=== PATIENT | male | born 1980 ===

== ENCOUNTER 2022-03-14 13:35 | Emergency (ER) | payer OTHER, SELFPAY ==
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
[2022-03-14 14:42] VITALS: BP 107/87; PULSE 95; RESP 18; TEMP 36.8; O2SAT 100; BMI 29.9
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
[2022-03-14] MEDS: Cyclobenzaprine HCl 10 MG TABLET PO (18:21)
[2022-03-14] MEDS: Ketorolac Tromethamine 15 MG/ML VIAL IM (18:21)
[2022-03-14 18:44] VITALS: BP 108/85; PULSE 79; RESP 18; O2SAT 99
== END 2022-03-14 18:46 | disposition home or self-care (01) ==
PROVIDERS: Emergency Provider Emergency Medicine; PCP Physician Assistant Medical
DX: Z04.1 Encounter for examination and observation following transport accident (principal)
CPT/HCPCS: 70450; 72125; 96372; 99284; J1885

== ENCOUNTER 2024-01-10 12:52 | Emergency (ER) | payer MEDICARE, SELFPAY ==
[2024-01-10 13:27] VITALS: BP 120/85; PULSE 82; RESP 20; TEMP 37.1; O2SAT 100; BMI 29.3
--- NOTE | 2024-01-10 13:28 | ED_ITS ---
HPI - Eye Problem General Chief complaint: Eye Problems Stated complaint: L eye swelling Time Seen by Provider: 01/10/24 13:35 Source: patient Mode of arrival: ambulatory Limitations: no limitations History of Present Illness HPI Narrative: This is a rapid medical exam: Additional HPI, ROS, PE not included below will be deferred to primary provider. Left eyelid swelling since Monday. Thought it was a stye and was using ointment and warm compresses without resolution of symptoms. States he has what feels like an abscess on the eyelid. Denies any drainage from the eyelid. Denies vision changes. This is a 43-year-old male presenting to the emergency department for evaluation of ?stye? to left eyelid that started Monday and has been progressively worsening. Patient reports before it was a stye it appeared to be a white dot. He did not squeeze it or do anything. It rapidly worsened. He reports the area is tender to palpation. Denies fevers, chills, headache, visual changes, neck pain, nausea, vomiting, abdominal pain, foreign body sensation in eye. Related Data Previous Rx's Medication Instructions Recorded cyclobenzaprine 10 mg tablet 10 mg PO TID PRN muscle spasm 7 03/14/22 days #21 tabs cephalexin 500 mg tablet 500 mg PO Q6H 10 days #40 tabs 01/10/24 doxycycline hyclate 100 mg capsule 100 mg PO BID 10 days #20 caps 01/10/24 Allergies Allergy/AdvReac Type Severity Reaction Status Date / Time No Known Allergies Allergy Verified 01/10/24 13:30 [No Known Allergies*] Review of Systems Review of Systems: Yes all other systems are reviewed and are negative [facility] Past Medical History Attestation statement: The following information was validated with the patient. Source: old records reviewed and nursing notes reviewed Medical History Migraine Brain cyst Social History Social History Advance Directives: No Advance Directives Information Provided: No Physical Exam Vital Signs: Vital Signs: Last Vital Signs Temp 98.8 F 01/10/24 13:27 Pulse 82 01/10/24 13:27 Resp 20 01/10/24 13:27 BP 120/85 01/10/24 13:27 Pulse Ox 100 01/10/24 13:27 O2 Del Method Room Air 01/10/24 13:27 BMI result Body Mass Index 29.3 vss Appearance: Alert.? Oriented X3.? No acute distress.? Head: Normocephalic, atraumatic, no step-offs or deformities Eyes: Pupils equal, round and reactive to light.?+ abscess w/ fluctuence tp L upper eye lid overlying errythema and warmth. No pain w/ EOM CVS:? Pulses normal.? Respiratory: No respiratory distress. Skin: Skin warm and dry.? Normal skin color.? Normal skin turgor.? Extremities: No lower extremity edema.? No calf ttp. 5/5 strength to bilateral upper and lower extremities Back: No midline tenderness, no C-spine tenderness, full range of motion, no CVA tenderness bilaterally Neuro: Oriented X 3.? No motor deficit.? No sensory deficit. CN 2-12 intact Medical Decision Making Medical Decision Making MDM Narrative: 43-year-old male presents with left upper eyelid abscess that started Monday and has been progressively worsening. Physical exam Pupils equal, round and reactive to light.?+ abscess w/ fluctuence tp L upper eye lid overlying errythema and warmth. No pain w/ EOM History and physical exam concerning for abscess with overlying cellulitis. No signs of orbital cellulitis however. No signs of optic nerve entrapment. Unlikely systemic illness. I did discuss this case with my attending who agrees that this is an abscess and we should not incision and drainage or fine needle aspirate this area. Advised warm compresses and antibiotics. Educated patient on diagnosis and treatment plan, answered all question, patient verbalizes understanding. At this time patient will be discharged home, advised to return with new or worsening symptoms. Educated on worrisome signs and symptoms and when to return. At this time I feel comfortable discharge home. Differential Diagnosis Differential Diagnoses: The differential diagnosis associated with the presentation includes History and physical exam concerning for abscess with overlying cellulitis. No signs of orbital cellulitis however. No signs of optic nerve entrapment. Unlikely systemic illness. Admission/Observation Consideration of admission/observation: Escalation of care including admission/observation considered Consult Healthcare Provider Management of the patient was discussed with: Chief Operator Reformer Critical Care Time Critical Care Time Critical Care Time: No Discharge Plan Discharge Clinical Impression: Abscess of eyelid Patient Disposition: Home, Self-Care Instructions: Abscess (ED), Incision and Drainage (ED) Additional Instructions: Take your medications as prescribed. If you were prescribed antibiotics today, it is important that you take your medication to their entirety, do not skip any doses, do not finish them early. Follow-up with your primary care provider this week. Return to the emergency department with new or worsening symptoms. Such as fevers, chills, chest pain, shortness of breath, nausea, vomiting, dizziness, headache, vision changes, lethargy In case of emergency call 911 Warm compresses to the area Wound check in 2-3 days. Prescriptions: New doxycycline hyclate 100 mg capsule 100 mg PO BID 10 Days Qty: 20 0RF cephalexin 500 mg tablet 500 mg PO Q6H 10 Days Qty: 40 0RF No Action cyclobenzaprine 10 mg tablet 10 mg PO TID PRN (Reason: muscle spasm) 7 Days Qty: 21 0RF Referrals: Antonio Jones [Physician] - 1 day Physician,Nola Tristan [Primary Care Provider] - 2 days Stand Alone Forms: Work/School Release Interventions: ED Discharge Assessment Last Done: 01/10/24 14:01 Discharge Date/Time: 01/10/24 14:02
== END 2024-01-10 14:02 | disposition home or self-care (01) ==
PROVIDERS: Emergency Provider Emergency Medicine
DX: H00.034 Abscess of left upper eyelid (principal)
CPT/HCPCS: 99282; 99283